=== PATIENT | female | born 1940 | race American Indian/Alaskan Native ===

== ENCOUNTER 2019-03-22 09:15 | Outpatient (CLI) | payer MEDICARE ==
--- NOTE | 2019-03-22 15:15 | Ultrasound Report ---
BILATERAL DIGITAL DIAGNOSTIC MAMMOGRAM WITH CAD 03/22/2019 RIGHT COMPLETE BREAST ULTRASOUND INDICATION: Right palpable breast lump. The patient said that she has noticed it only for short time. TECHNIQUE: Digital bilateral mammographic imaging was performed. Complete ultrasound of all four (4) quadrants was performed. This examination was interpreted with the benefit of Computer-Aided Detecti on (CAD) analysis. COMPARISON: 03/17/2015 screening mammogram FINDINGS: Breast Density: The breasts are heterogeneously dense, which may obscure small masses. MAMMOGRAPHIC FINDINGS: A circumscribed slightly irregular right upper outer mass measures 4.3 cm and corresponds to the palpable lump. Additional right upper outer asymmetries demonstrates satisfactory effacement on spot images. No suspicious calcifications of the right breast. There is no evidence of dominant mass, suspicious calcifications or architectural distortion in the left breast. ULTRASOUND FINDINGS: Complete sonographic evaluation of all 4 quadrants and retroareolar region was p erformed. Ultrasound of the right breast demonstrated a solid heterogeneous hypoechoic mass at 11:0 0 10 cm from the nipple. It measures 3.5 x 2.9 x 3.7 cm and correlates with the mammographic mass. No other mass, cyst or suspicious shadowing of the right breast. IMPRESSION: A suspicious 3 to 4 cm right breast mass at 11:00 10 cm from the nipple. The location sug gests that it may be an abnormal axillary lymph node. Recommend ultrasound-guided needle biopsy. I discussed the findings and the recommendation for ultrasound-guided needle biopsy with the patient at the time of the exam. Follow up recommendation: Biopsy BI-RADS Category 5: Highly Suggestive of Malignancy. A "normal" or negative report should not discourage follow up or biopsy of a clinically significant f inding. A written summary of these findings will be mailed to the patient. The patient will be entered into a mammography reporting system which will generate a reminder letter for the patient's next appointmen t at the appropriate interval. According to the [employer], yearly mammograms are recommended starting at age 40 and continuing as long as a woman is in good health. Breast MRI is recommended for women with an lisa roximately 20-25% or greater lifetime risk of breast cancer, including women with a strong family his tory of breast or ovarian cancer and women who have been treated for Hodgkin's disease. Signer Name: Jaret Mobley MD Signed: 03/22/2019 3:11 PM Workstation Name: [id number]
== END 2019-03-22 09:16 | disposition home or self-care (01) ==
LOC: MAMMO 09:15
PROVIDERS: ATTEND Family Medicine
DX: R92.8 Other abnormal and inconclusive findings on diagnostic imaging of breast (principal); N63.10 Unspecified lump in the right breast, unspecified quadrant
CPT/HCPCS: 77066